=== PATIENT | female | born 1965 | race Caucasian/White ===

== ENCOUNTER 2016-05-14 10:39 | Outpatient (CLI) | payer OTHER | END 2016-05-14 10:40 | disposition home or self-care (01) | DX: Z12.31 Encounter for screening mammogram for malignant neoplasm of breast (principal) ==

== ENCOUNTER 2016-05-14 11:10 | Outpatient (CLI) | payer OTHER | END 2016-05-14 11:11 | disposition home or self-care (01) | DX: Z00.00 Encounter for general adult medical examination without abnormal findings (principal) ==

== ENCOUNTER 2016-08-05 07:49 | Day surgery (SDC) | payer OTHER ==
[2016-08-05] MEDS ORDERED: LACTATED RINGERS 1,000 ML IV ONE (08:23)
[2016-08-05 08:30] LABS: HCG UR QUAL NEGATIVE
--- NOTE | 2016-08-05 08:57 | HISTORY & PHYSICAL EXAMINATION ---
HPI - History of Present Illness HPI Comment/Other: History of Present Illness: This is a pleasant 51 year old female who presents for screening colonoscopy. Current Meds: FLUTICASONE PROPIONATE 50 MCG/ACT SUSP (FLUTICASONE PROPIONATE) Use one spray each nostril twice daily VITAMIN D 1000 UNIT TABS (CHOLECALCIFEROL) Take one tablet by mouth daily for vit D deficiency CLARITIN 10 MG TABS (LORATADINE) Take one tablet by mouth daily Allergies: MORPHINE (Critical) NSAIDS (Critical) Past Medical History: Reviewed history and no changes required: Anemia Past Surgical History: Reviewed history from 12/07/2010 and no changes required: LEEP (1998) endometrial ablasion Left knee - arthroscopic - lateral release, tibial transfer Family History Summary: Reviewed history and no changes required: 06/09/2016 Sister (full) - Has Family History of Other Cancer - Thyroid cancer - Entered On : 06/09/2016 General Comments - FH: mother - alive, cataract, glaucoma, knee replacement father - melanoma, HTN, cholesterol, degenerative disc disease sister - melanoma 3 children Social History: Reviewed history from 12/07/2010 and no changes required: 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 Risk Factors: Smoked Tobacco Use: Never smoker Alcohol use: yes Drinks per day: 1 Exercise: yes Times per week: 2 Type of Exercise: walk Review of Systems See HPI Physical Exam General: well developed, well nourished, in no acute distress Lungs: clear bilaterally to A & P Heart: regular rate and rhythm, S1, S2 without murmurs, rubs, gallops, or clicks Abdomen: bowel sounds positive; abdomen soft and non-tender without masses, organomegaly, or hernias noted Pulses: pulses normal in all 4 extremities Extremities: no clubbing, cyanosis, edema, or deformity noted with normal full range of motion of all joints Cervical Nodes: no significant adenopathy Psych: alert and cooperative; normal mood and affect; normal attention span and concentration Problems: Problems Added: 1) Dx of Screening, colon cancer ([id number]) (ICD-V76.51) Impression & Recommendations: Problem # 1: screening for colon cancer proceed with colonoscopy PMH/PSH - Past Medical History Cardiovascular: positive: None Respiratory: positive: None, Other Endocrine/Autoimmune: positive: None GI: positive: None : positive: None HEENT: positive: Chronic vision loss Psych: positive: None Musculoskeletal: positive: Osteoarthritis Derm: positive: None MRSA Hx?: No - Past Surgical History 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 Meds/Allgy - Home Medications Home Medications: Ambulatory Orders Medication Instructions Recorded Confirmed Loratadine/Pseudoephedrine 1 DAILY 08/05/16 [Loratadine-D 24Hr Tablet] - Allergies Allergies/Adverse Reactions: Allergies Allergy/AdvReac Type Severity Reaction Status Date / Time morphine Allergy Anaphylaxis Verified 08/05/16 08:03 naproxen Allergy Hives Verified 08/05/16 08:03 NSAIDS (Non-Steroidal Allergy Respiratory Verified 08/05/16 08:03 Anti-Inflamma Exam - Vital Signs Vital Signs: Vital Signs x48h Temp Pulse Resp BP Pulse Ox 08/05/16 07:57 36.4 C L 79 16 116/88 H 97 Results - Lab Results Other Lab Results: Lab Results x24hrs 08/05/16 Range/Units 08:11 Ur Specific [place] 1.020 (1.002-1.030) Urine HCG, Qual NEGATIVE
[2016-08-05] MEDS ORDERED: ONDANSETRON 4 MG/2 ML VIAL IVP ONE (09:04)
[2016-08-05] MEDS ORDERED: fentaNYL 100 MCG/2 ML VIAL IVP ONE (09:04)
[2016-08-05] MEDS ORDERED: MIDAZOLAM 2 MG/2 ML VIAL IVP ONE (09:04)
[2016-08-05 10:35] VITALS: BP 107/68
== END 2016-08-05 07:50 | disposition home or self-care (01) ==
LOC: SDS 07:49
PROVIDERS: ATTEND Surgery
PROC: 0DBP8ZX Excision of Rectum, Via Natural or Artificial Opening Endoscopic, Diagnostic (ICD-10-PCS; 2016-08-05)
PROC: 0DBH8ZX Excision of Cecum, Via Natural or Artificial Opening Endoscopic, Diagnostic (ICD-10-PCS; principal; 2016-08-05 09:00)
DX: Z12.11 Encounter for screening for malignant neoplasm of colon (principal); D12.0 Benign neoplasm of cecum; K62.1 Rectal polyp; K57.30 Diverticulosis of large intestine without perforation or abscess without bleeding; K64.8 Other hemorrhoids; K64.4 Residual hemorrhoidal skin tags; Z80.8 Family history of malignant neoplasm of other organs or systems; Z82.49 Family history of ischemic heart disease and other diseases of the circulatory system
CPT/HCPCS: 45380; 45385; 81025; J7120; 88305